=== PATIENT | male | born 1990 | race Caucasian/White ===

== ENCOUNTER → 2017-02-13 | Outpatient (CLI) | payer OTHER ==
[~2017-02-13] MED LIST: FIORIC PO; IBUP-238 PO
== END ==
LOC: CLAB 10:36
PROVIDERS: ATTEND Specialist
DX: B18.2 Chronic viral hepatitis C (principal); R94.5 Abnormal results of liver function studies; Z13.21 Encounter for screening for nutritional disorder; Z13.220 Encounter for screening for lipoid disorders; Z28.3 Underimmunization status; Z02.83 Encounter for blood-alcohol and blood-drug test
CPT/HCPCS: 36415; 82140